=== PATIENT | male | born 1995 | race Caucasian/White ===

== ENCOUNTER 2018-01-16 16:50 | Emergency (ER) | payer OTHER, SELFPAY ==
[2018-01-16 16:51] VITALS: BP 125/68; PULSE 82; RESP 16; TEMP 37.1; O2SAT 97; BMI 24.8
--- NOTE | 2018-01-16 17:01 | ED.DCSUM_ITS ---
- ER Visit Summary Date of Service: 01/16/18 Chief Complaint: Right hand injury History of Present Illness: The patient is a 22 M who is otherwise healthy with up-to-date tetanus presents with injury to the tip of his right third finger. Patient was at baseball. He went to catch a ball and lost it in the sun. It struck on the tip of the finger. He had some pain and bleeding. He describes some tingling on the tip. He denies any other injury. The patient is otherwise healthy. Physical Examination: Exam is relatively unremarkable. Patient has a contusion with abrasion at the distal tip of the finger. The nail is intact. There is no subungual hematoma. Two-point examination is preserved. Cap refill is less than 2 seconds. Flexor profundus and flexor superficialis are intact. Test Results: [] Emergency Department Course and Treatment: There is no visible laceration of the nailbed. There was no subungual hematoma. The wound was cleaned. There was no active bleeding. I did obtain plain films of the finger. There is no evidence of tuft fracture. Bacitracin dressing was applied. I do feel that the risk of removing the nail and trying to evaluate under the nailbed without evidence of injury will cause increased risk of infection. I am going to place patient on prophylactic Keflex as this was a tip injury without fracture. He will be placed in a bulky dressing and finger splint. He will be discharged home, return with worsening pain or redness. He is comfortable with this plan of care. Treatment Plan: [] Disposition: Discharge Impression: 1. Right third fingertip contusion This note was generated with [employer] dictation software. It may contain incorrect words, spelling, and punctuation that were not noted in review of the chart prior to signing ED Disposition - Plan for ED Patient: Chief Complaint: Upper Extremity Injury Instructions: ED Crush Injury Finger No Fx Prescriptions: Cephalexin [Keflex] 500 mg PO BID #14 cap Referrals: [facility] Doctor,Out of [NON-STAFF] -
--- NOTE | 2018-01-16 17:10 | RAD_ITS ---
STUDY: X-RAY - RIGHT HAND REASON FOR EXAM: Male, 22 years old. Trauma TECHNIQUE: 3 view(s) of the hand. COMPARISON: None. FINDINGS: There is no evidence of fracture or dislocation. There are no significant degenerative changes. There are no radiodense foreign bodies. RAD/Hand Min 3 Views IMPRESSION: No fracture or dislocation. Electronically Signed: Derrick Mccurdy, at 17:49 EDT Tel , Service support ,
== END 2018-01-16 18:18 | disposition home or self-care (01) ==
LOC: ED 17:51
PROVIDERS: Emergency Provider Emergency Medicine; Family Provider Pediatrics; PCP Pediatrics
DX: S60.031A Contusion of right middle finger without damage to nail, initial encounter (principal); S60.412A Abrasion of right middle finger, initial encounter; R20.2 Paresthesia of skin; K21.9 Gastro-esophageal reflux disease without esophagitis; W21.03XA Struck by baseball, initial encounter; Y93.9 Activity, unspecified; Y92.9 Unspecified place or not applicable
CPT/HCPCS: 73130; 99283